=== PATIENT | male | born 1950 | race Caucasian/White ===

== ENCOUNTER 2016-07-19 17:07 | Inpatient (IN) ==
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
[2016-07-19 18:14] LABS: Basophils # 0.1 K/mcL (0.0-0.2); Basophils % 0.7 %; Eosinophils # 0.4 K/mcL (0.0-0.6); Eosinophils % 5.4 %; Hematocrit 41.7 % (37.5-50.1); Hemoglobin 14.3 g/dL (12.9-16.9); Immature Granulocytes % 0.3 % (0-4); Lymphocytes # 2.3 K/mcL (0.6-4.6); Mean Corpuscular HGB Conc 34.3 g/dL (31.6-35.5); Mean Corpuscular Hemoglobin 31.8 pg (28.0-33.3); Mean Corpuscular Volume 92.7 fL (83.0-100.0); Mean Platelet Volume 9.5 fL (9.4-12.4); Monocytes # 0.4 K/mcL (0.0-1.3); Monocytes % 6.4 %; Neutrophils # 3.6 K/mcL (1.6-8.9); Platelet Count 210 K/mcL (140-400); Red Cell Distribution Width 12.5 % (11.5-14.5); Segmented Neutrophils % 53.2 %
[2016-07-19 18:24] LABS: BUN/Creatinine Ratio 9 (6-26); Blood Urea Nitrogen 8 mg/dL (8-26); Calcium 9.3 mg/dL (8.6-10.8); Carbon Dioxide 27 mEq/L (19-29); Chloride 108 mEq/L (98-109); Glucose 93 mg/dL (70-99); Osmolality,Calculated 290 (280-300); Potassium 3.3 mEq/L (3.5-4.5); Sodium 141 mEq/L (136-145); eGFR For African Americans > 60 (> 60); eGFR For Non-African Americans > 60 (> 60)
--- NOTE | 2016-07-19 22:40 | Internal Med History&Physical ---
Date of Encounter: 07/19/16 Time of Encounter: 22:33 Assessment and Plan (1) TIA (transient ischemic attack) Current visit: Yes Status: Acute Patient described an episode of sudden onset left lower extremity weakness to the emergency department physician. He tells me about sun onset numbness and his left side of the face and left upper extremity. His neurologic exam is grossly nonfocal. We will admit the patient for further workup and treatment, monitor on telemetry, perform neuro checks every 4 hours, obtain MRI of the brain, carotid Doppler studies and echocardiogram. Check lipid panel, start aspirin, obtain PT and OT evaluation. Qualifiers: Transient cerebral ischemia type: carotid artery syndrome (hemispheric) Qualified Code(s): G45.1 - Carotid artery syndrome (hemispheric) (2) COPD (chronic obstructive pulmonary disease) Current visit: Yes Status: Acute Inhaled albuterol and Atrovent as needed for shortness of breath. No evidence of exacerbation. No need for steroids or antibiotics. Qualifiers: COPD type: chronic bronchitis Chronic bronchitis type: simple Qualified Code(s): J41.0 - Simple chronic bronchitis (3) Tobacco abuse Current visit: Yes Status: Acute I have provided smoking cessation counseling. He refused nicotine replacement therapy. (4) Essential hypertension Current visit: Yes Status: Acute Continue with metoprolol and amlodipine (5) DVT prophylaxis Current visit: Yes Status: Acute Subcutaneous Lovenox. Internal Medicine - H&P: HPI Chief complaint: Headache Admitted From: Emergency Dept Plans for Post Hospital Care: Home History of present illness: Mr. Underwood is a 65 year old male with past medical history of hypertension and COPD who presented to the hospital for headache. The patient is a disorganized historian and it is difficult to obtain a clear picture. He reports a diffuse headache and several days of intermittent left cyanosis numbness involving the left upper extremity the left side of the face and the mouth including the left side of his tongue. She also admits that the numbness moves from the left side than the right and does not have a clear pattern. He states that he has been limping but he denies that one week when being weaker than the other. He also reports chronic joint aches and pains, chronic cough related to smoking, and mild chest pain which she cannot describe in any detail. He also reports chronic headache, visual loss, he also reports a recent episode of syncope. He reports symptoms of PTSD. A 10 point review of systems was negative except as above Past medical history as per the history of present illness Family history was reviewed and found to be noncontributory to this presentation. Past Med Surg Social Fam HX - Past Medical History Medical history: cancer, COPD, hypertension Psychiatric history: PTSD - Social History Smoking Status: Current every day smoker Smokeless Tobacco Status: Yes Alcohol use: none Drug use: none Internal Medicine - H&P: Meds Amlodipine Besylate 2.5 mg PO BID 07/19/16 [History] Budesonide/Formoterol 160/4.5 [Symbicort 160/4.5] 1 puff IH BIDR 07/19/16 [ History] Buspirone HCl [Buspar] 7.5 mg PO BID 07/19/16 [History] Gabapentin [Neurontin] 300 mg PO TID 07/19/16 [History] HydrOXYzine Pamoate [Vistaril] 50 mg PO TID PRN 07/19/16 [History] LevETIRAcetam [Keppra] 1,000 mg PO BID 07/19/16 [History] Metoprolol [Lopressor] 25 mg PO BID 07/19/16 [History] Topiramate [Topamax] 25 mg PO BID 07/19/16 [History] Allergies butorphanol Allergy (Verified 12/01/15 18:36) Hives cephalexin Allergy (Verified 12/01/15 18:36) Hives chocolate flavor Allergy (Verified 12/01/15 18:36) Anaphylaxis ciprofloxacin [From Cipro] Allergy (Verified 12/01/15 18:36) Hives codeine Allergy (Verified 12/01/15 18:36) Hives Iodinated Contrast Media - Oral and [Iodinated Contrast Media - IV Dye] Allergy (Verified 12/01/15 18:36) See Comments patient states "makes me feel like I am on fire." lamotrigine Allergy (Verified 12/01/15 18:36) Redness of Skin morphine Allergy (Verified 12/01/15 18:36) Hallucinating Penicillins Allergy (Verified 12/01/15 18:36) Hives Prazosin Allergy (Verified 12/01/15 18:36) Hives sertraline Allergy (Verified 12/01/15 18:36) Hives acetaminophen [From Darvocet-N] Adverse Reaction (Verified 12/01/15 18:36) Vomiting doxycycline Adverse Reaction (Verified 07/19/16 19:23) See Comments [facility] gabapentin Adverse Reaction (Verified 12/01/15 18:36) Gastrointestinal Upset Paroxetine [From Paxil] Adverse Reaction (Verified 12/01/15 18:36) Hallucinating propoxyphene [From Darvocet-N] Adverse Reaction (Verified 12/01/15 18:36) Vomiting tramadol Adverse Reaction (Verified 12/01/15 18:36) Vomiting All Systems PM: A 10-system review of systems was performed and is negative for pertinent findings except as documented above in the HPI. - Constitutional Vitals: Temp Pulse Resp BP Pulse Ox 97.5 F L 58 16 121/83 95 07/19/16 17:09 07/19/16 18:50 07/19/16 20:46 07/19/16 20:46 07/19/16 18:50 General appearance: Present: A&O X 3 - Eye Eye exam: Present: PERRL, conjuntiva pink, sclera anicteric Pupils: Present: PERRL - Respiratory Respiratory exam: Present: CTAB. Absent: accessory muscle use, rales, rhonchi, wheezes - Cardiovascular Cardiovascular exam: Present: RRR, +S1, +S2. Absent: diastolic murmur, gallop, rubs, systolic murmur - GI/Abdominal GI/Abdominal exam: Present: normal bowel sounds, soft, no peritoneal signs. Absent: distended, tenderness - Extremities Exam Extremities exam: Present: warm, radial pulses palpable and symetrical. Absent : calf tenderness, cyanotic, pedal edema - Neurological Exam Neurological exam: Present: CN II-XII intact, normal gait (Gait is slow and deliberate but he does not sway to either side), oriented X3, no focal deficits. Absent: pronater drift, facial droop, speech deficit - Skin Skin exam: Present: dry, intact Internal Med - H&P Results - Labs CBC & Chem 7: 07/19/16 17:46 07/19/16 17:46
[2016-07-19] MEDS ORDERED: hydrOXYzine pamoate 25 MG CAPSULE PO PRN (22:49)
[2016-07-19] MEDS ORDERED: Acetaminophen 325 MG TABLET PO PRN (22:51)
[2016-07-19] MEDS ORDERED: *HR* HYDROcodone/Acet 5/325 mg TABLET PO PRN (22:51)
[2016-07-19] MEDS ORDERED: Naloxone 0.4 MG/ML INJ IVP PRN (22:51)
[2016-07-20 05:30] LABS: Basophils # 0.1 K/mcL (0.0-0.2); Basophils % 0.9 %; Eosinophils # 0.4 K/mcL (0.0-0.6); Eosinophils % 5.3 %; Hematocrit 39.8 % (37.5-50.1); Hemoglobin 13.4 g/dL (12.9-16.9); Immature Granulocytes % 0.3 % (0-4); Lymphocytes # 2.5 K/mcL (0.6-4.6); Lymphocytes % 37.6 %; Mean Corpuscular HGB Conc 33.7 g/dL (31.6-35.5); Mean Corpuscular Hemoglobin 31.2 pg (28.0-33.3); Mean Corpuscular Volume 92.6 fL (83.0-100.0); Monocytes # 0.5 K/mcL (0.0-1.3); Neutrophils # 3.2 K/mcL (1.6-8.9); Platelet Count 203 K/mcL (140-400); Red Cell Distribution Width 12.5 % (11.5-14.5); Segmented Neutrophils % 48.9 %
[2016-07-20 05:44] LABS: BUN/Creatinine Ratio 10 (6-26); Blood Urea Nitrogen 10 mg/dL (8-26); Calcium 9.1 mg/dL (8.6-10.8); Carbon Dioxide 29 mEq/L (19-29); Chloride 109 mEq/L (98-109); Chol/HDL Ratio 3.7 (0-4.9); Cholesterol 114 mg/dL (< 200); Glucose 94 mg/dL (70-99); HDL Cholesterol 31 mg/dL (40-59); LDL Cholesterol,Calculated 64 mg/dL (0-99); Magnesium 2.1 mg/dL (1.6-2.6); Osmolality,Calculated 293 (280-300); Potassium 3.6 mEq/L (3.5-4.5); Sodium 142 mEq/L (136-145); Triglycerides 97 mg/dL (< 150); eGFR For African Americans > 60 (> 60); eGFR For Non-African Americans > 60 (> 60)
[2016-07-20] MEDS: *HR* Enoxaparin 40 MG/0.4 ML SYRINGE SQ SCH (06:02)
[2016-07-20] MEDS: Budesonide/Formoterol 160/4.5 MDI IH SCH ×2 (07:41→23:50)
[2016-07-20] MEDS: Aspirin 81 MG TAB.CHEW PO SCH (08:06)
[2016-07-20] MEDS: levETIRAcetam 250 MG TABLET PO SCH ×2 (08:08→20:55)
[2016-07-20] MEDS: Gabapentin 300 MG CAPSULE PO SCH ×3 (08:09→20:52)
[2016-07-20] MEDS: amLODIPine 5 MG TABLET PO SCH ×2 (08:10→20:54)
[2016-07-20] MEDS: Topiramate 25 MG TABLET PO SCH ×2 (08:11→20:52)
--- NOTE | 2016-07-20 11:34 | Neurology - Consult Note ---
<RoelAly - Last Filed: 07/20/16 13:07> Date of Encounter: 07/20/16 Time of Encounter: 11:30 Assessment and Plan (1) Paresthesias Current Visit: Yes Status: Chronic Given his psych history along with high variability and chronicity of his symptoms, I suspect psychogenic etiology He had head CT and MRI which were both non-diagnostic of acute intracranial abnormalities Echocardiogram and Carotid ultrasounds have been ordered and results are pending Will work up metabolic derangements with B12, Folate; TSH was WNL History of Present Illness Chief complaint: numbness and headache HPI: Mr. Underwood is a 65 year old male who presents to the ED with numbness of the left side along with headaches. He states that these symptoms have been intermittent over the past 47 years but has never been formally worked up. He states the numbness usually starts at his fingers and progress up his arm and goes to his face, neck and tongue on one side. He denies any triggering factors, stating these episodes occur randomly and usually last around 2 days. He also reports the symptoms may occur on either side of his body. He describes the headache as diffuse and also complains of generalized weakness and blurry vision, claiming to have visual deficits similar to binasal hemianopsia. He does have history of PTSD on multiple psychiatric medications and had bladder cancer which was resected, causing him chronic urinary incontinence. He lives at home with his and states he does have a history of falls but is unable to tell me if he has lost consciousness. Denies history of stroke, blood clots, or seizures. Past Med Surg Social Fam HX - Past Medical History Medical history: cancer, COPD, hypertension Psychiatric history: PTSD - Social History Smoking Status: Current every day smoker Smokeless Tobacco Status: Yes Alcohol use: none Drug use: none Medications and Allergies Amlodipine Besylate 2.5 mg PO BID 07/19/16 [History] Budesonide/Formoterol 160/4.5 [Symbicort 160/4.5] 1 puff IH BIDR 07/19/16 [ History] Buspirone HCl [Buspar] 7.5 mg PO BID 07/19/16 [History] Gabapentin [Neurontin] 300 mg PO TID 07/19/16 [History] HydrOXYzine Pamoate [Vistaril] 50 mg PO TID PRN 07/19/16 [History] LevETIRAcetam [Keppra] 1,000 mg PO BID 07/19/16 [History] Metoprolol [Lopressor] 25 mg PO BID 07/19/16 [History] Topiramate [Topamax] 25 mg PO BID 07/19/16 [History] Allergies butorphanol Allergy (Verified 12/01/15 18:36) Hives cephalexin Allergy (Verified 12/01/15 18:36) Hives chocolate flavor Allergy (Verified 12/01/15 18:36) Anaphylaxis ciprofloxacin [From Cipro] Allergy (Verified 12/01/15 18:36) Hives codeine Allergy (Verified 12/01/15 18:36) Hives Iodinated Contrast Media - Oral and [Iodinated Contrast Media - IV Dye] Allergy (Verified 12/01/15 18:36) See Comments patient states "makes me feel like I am on fire." lamotrigine Allergy (Verified 12/01/15 18:36) Redness of Skin morphine Allergy (Verified 12/01/15 18:36) Hallucinating Penicillins Allergy (Verified 12/01/15 18:36) Hives Prazosin Allergy (Verified 12/01/15 18:36) Hives sertraline Allergy (Verified 12/01/15 18:36) Hives acetaminophen [From Darvocet-N] Adverse Reaction (Verified 12/01/15 18:36) Vomiting doxycycline Adverse Reaction (Verified 07/19/16 19:23) See Comments va list gabapentin Adverse Reaction (Verified 12/01/15 18:36) Gastrointestinal Upset Paroxetine [From Paxil] Adverse Reaction (Verified 12/01/15 18:36) Hallucinating propoxyphene [From Darvocet-N] Adverse Reaction (Verified 12/01/15 18:36) Vomiting tramadol Adverse Reaction (Verified 12/01/15 18:36) Vomiting All Systems: A 10-system review of systems was performed and is negative for pertinent findings except as documented above in the HPI. - Constitutional Constitutional ROS IM: frequent falls, headache(s), stops breathing during sleep , weakness, no fever(s) - Eyes Eyes: bilateral: blurred vision, loss of vision (in the medial aspects) - Nose, Mouth, Throat Nose, mouth and throat: disequilibrium, headache(s), no vertigo - Cardiovascular Cardiovascular ROS IM: no chest pain, no diaphoresis, no irregular heart rhythm - Respiratory Respiratory IM: no cough, no wheezing - Gastrointestinal Gastrointestinal: no abdominal pain, no constipation, no diarrhea, no nausea, no vomiting - Genitourinary Genitourinary ROS: urinary incontinence - Musculoskeletal Musculoskeletal ROS IM: muscle weakness, numbness, tingling - Neurological Neurological ROS: abnormal gait, headache(s), lack of coordination, loss of vision, numbness, sensory deficit, tingling, weakness, no abnormal movements, no abnormal speech, no confusion, no focal weakness, no syncope, no tremor(s) Physical Examination - Vital Signs Vital Signs: Initial Vital Signs Temp Pulse Resp BP Pulse Ox 97.5 F L 59 16 138/92 98 07/19/16 17:09 07/19/16 17:09 07/19/16 17:09 07/19/16 17:09 07/19/16 17:09 - Constitutional General appearance: comfortable - Neurologic Sensorimotor examination: intact Detailed motor examination: full strength in all major muscle groups Motor examination - right side: 5/5: deltoids, biceps, triceps, cushion maker, hip flexors, quadriceps Motor examination - left side: 5/5: deltoids, biceps, triceps, hip flexors, cushion maker , quadriceps Detailed sensory examination: intact (slightly diminished at left side of face and arm, and right leg) Reflex and gait examination: intact Reflexes: Biceps: 2+, Patella: 2+, Achilles: 2+ Mental Status Examination: awake, alert, oriented to person, oriented to place, oriented to time, follows commands appropriately, answers questions appropriately, no agnosia, no aphasia, no aproxia Cranial nerve examination: PERRL, EOMI, visual singleton intact, corneal reflexes brisk symmetrically, sensory to face intact, mastication intact, no facial asymmetry is present, no dysarthria, hearing is intact symmetrically, soft palate elevates bilaterally upon phonation, gag reflex intact, flexes SCM and trapezius muscles symmetrically with full power, tongue protrudes midline, no atrophy or facial fasiculations present Cerebellar examination: no dysmetria, performs finger to nose and heel to kasper symmetrically without ataxia, no difficulty with rapid alternating movements Results - Laboratory Findings CBC and BMP: 07/20/16 04:59 07/20/16 04:59 Abnormal lab findings: Abnormal lab results MPV 9.0 fL (9.4-12.4) L 07/20/16 04:59 HDL Cholesterol 31 mg/dL (40-59) L 07/20/16 04:59 Consult Discharge Plan - Plan [facility]errals: [facility]Primary Care Provider[facility] - <Reji Lee - Last Filed: 07/21/16 08:09> Date of Encounter: 07/21/16 Time of Encounter: 07:59 Assessment and Plan (1) Paresthesias Current Visit: Yes Status: Chronic As above. Patient presents with migratory paresthesias and a host of other somatic complaints. However his neurologic examination and neuroimaging studies have all been normal. I am not able to determine a neurologic etiology to explain this gentleman's presentation. I agree with Dr. Sevilla's assessment as stated above. I will reevaluate him at your request. History of Present Illness HPI: Mr. Underwood is a 65 year old male who is being seen for neurologic consultation secondary to migratory paresthesias and headaches. The case was discussed with Dr. Sevilla. I agree with his history as stated above. All Systems: A 10-system review of systems was performed and is negative for pertinent findings except as documented above in the HPI. Review of Systems: Patient answers affirmatively to every question asked in the systems review. Physical Examination - Vital Signs Vital Signs: Initial Vital Signs Temp Pulse Resp BP Pulse Ox 97.5 F L 59 16 138/92 98 07/19/16 17:09 07/19/16 17:09 07/19/16 17:09 07/19/16 17:09 07/19/16 17:09 - Neurologic Detailed motor examination: full strength in all major muscle groups Motor examination - right side: 5/5: deltoids, biceps, triceps, wrist flexion, wrist extension, cushion maker, hip flexors, tibialis Anterior, quadriceps, toe extension (EHL), plantarflexion Motor examination - left side: 5/5: deltoids, biceps, triceps, wrist flexion, wrist extension, hip flexors, cushion maker, quadriceps, tibialis Anterior, toe extension (EHL), plantarflexion Mental Status Examination: awake, alert, oriented to person, oriented to place, oriented to time, follows commands appropriately, answers questions appropriately, no agnosia, no aphasia, no aproxia Cranial nerve examination: PERRL, EOMI, visual singleton intact, corneal reflexes brisk symmetrically, sensory to face intact, mastication intact, no facial asymmetry is present, no dysarthria, hearing is intact symmetrically, soft palate elevates bilaterally upon phonation, gag reflex intact, flexes SCM and trapezius muscles symmetrically with full power, tongue protrudes midline, no atrophy or facial fasiculations present Cerebellar examination: no dysmetria, performs finger to nose and heel to kasper symmetrically without ataxia, no gait ataxia, no truncal ataxia, no difficulty with rapid alternating movements Results - Laboratory Findings CBC and BMP: 07/21/16 04:24 07/21/16 04:24 Abnormal lab findings: Abnormal lab results Potassium 3.3 mEq/L (3.5-4.5) L 07/21/16 04:24 HDL Cholesterol 31 mg/dL (40-59) L 07/20/16 04:59 Vitamin B12 < 109 pg/mL (213-816) L 07/20/16 04:59 Folate 6.2 ng/mL (7.0-31.4) L 07/20/16 04:59
--- NOTE | 2016-07-20 12:26 | ECHO - Doppler Report ---
Echo with Saline Contrast Name: Robby Underwood Date of Study: 07/20/2016 Date: 1950 Ht: 72.0 in Medical Record#: [id number] Age: 65 Wt: 171.0 lb Gender: Male BSA: 1.99 Order #: [id number] Location: [facility] Room #: 3B21 Reading Physician: Reji Dc MD, [facility] Mobile Application Development Lead: Eboni Alanis Ordering Physician: Marcial Caceres MD Primary Physician: [facility] Indications: Transient Ischemic Attack Impressions: Normal LV systolic function, LVEF 65%. Normal left ventricular diastolic function. Normal right ventricular size and function. No significant valvular dysfunction. No evidence of pulmonary hypertension. There is a small patent foramen ovale (PFO) by agitated saline contrast. Left Ventricular Wall Motion: Rest Echo Findings All wall segments showed normal motion. Findings: Study Quality * Technically adequate exam. ECG Findings * Sinus bradycardia. Left Ventricle * Normal LV systolic function, LVEF 65%. * Normal LV chamber size and wall thickness. * Normal left ventricular diastolic function. Right Ventricle * Normal right ventricular size and function. Left Atrium * Normal left atrial size. Right Atrium * Normal right atrial size. Interatrial Septum * There is a small patent foramen ovale (PFO) by agitated saline contrast. Aorta * Normally sized aortic root. Pericardium * There is no pericardial effusion present. IVC * Normal IVC dimensions and inspiratory collapse. Aortic Valve * Trileaflet aortic valve. * No aortic stenosis. * No aortic regurgitation. Mitral Valve * Normal mitral valve structure. * No mitral stenosis. * Trace mitral regurgitation. Tricuspid Valve * Normal tricuspid valve structure. * No tricuspid stenosis. * Trace tricuspid regurgitation. * No evidence of pulmonary hypertension. Pulmonic Valve * Pulmonic valve not well visualized. * No pulmonic stenosis. * No pulmonic regurgitation. History Hypertension History of Smoking Years 57 Packs 1 Family History of CAD Contrast: Agitated saline 20 ml. Measurements: BP: 120/ 75 2D Normal Values RVIDd: 3.40 cm IVSd: 1.00 cm 0.6 - 1.0 cm LVIDd: 4.50 cm 3.7 - 5.6 cm LVPWd: 1.00 cm 0.6 - 1.1 cm LVIDs: 3.00 cm 1.5 - 3.6 cm AO: 2.60 cm < 4.0 cm %FS: 33.30 cm >25 % LA volume: 34 Mitral Valve Peak E:.78 m/sec Peak A:.61 m/sec E/A Ratio:1.3 Tricuspid Valve TV Regurg Peak Grad: 30.00mmHg TV Regurg Peak Ghulam: 2.73m/sec Updated by Reji Dc MD, [facility] on 07/20/2016 12:21:58 PM electronically signed on 07/20/2016 12:22:43 PM with status of Final Wall Motion Razo: 1=Normal, 2=Hypokinesis, 3=Akinesis, 4=Dyskinesis, 5=Aneurysmal, 6=Hyperkinetic, X=Not Visualized (Blank)=Missing
[2016-07-20] MEDS: Nicotine 2 MG GUM BC PRN ×2 (12:31→17:50)
[2016-07-20 12:48] LABS: Thyroid Stimulating Hormone 3.131 mcIU/mL (0.350-4.840)
[2016-07-20 14:21] LABS: Folate 6.2 ng/mL (7.0-31.4)
[2016-07-20 14:25] LABS: Vitamin B12 < 109 pg/mL (213-816)
--- NOTE | 2016-07-20 16:57 | Internal Med Progress Note ---
Date of Encounter: 07/20/16 Time of Encounter: 16:55 - Assessment and plan (1) TIA (transient ischemic attack) Current Visit: Yes Status: Acute Assessment and plan: Initial presenting symptoms resolved at this time MRI head: No acute intracranial abnormality 2D echo: Normal LV systolic function, LVEF: 65%, normal LV diastolic function carotid doppler studies pending awaiting Neurology consultation with Dr. Lee Continue ASA PT/OT Qualifiers: Transient cerebral ischemia type: carotid artery syndrome (hemispheric) Qualified Code(s): G45.1 - Carotid artery syndrome (hemispheric) (2) COPD (chronic obstructive pulmonary disease) Current Visit: Yes Status: Acute Assessment and plan: Not in acute exacerbation continue bronchodilators as needed Qualifiers: COPD type: chronic bronchitis Chronic bronchitis type: simple Qualified Code(s): J41.0 - Simple chronic bronchitis (3) Tobacco abuse Current Visit: Yes Status: Acute Assessment and plan: nicotine replacement therapy provided smoking cessation counseling provided. Pt not ready to quit at this time. (4) Essential hypertension Current Visit: Yes Status: Acute Assessment and plan: BP within acceptable range continue home medications (5) DVT prophylaxis Current Visit: Yes Status: Acute Assessment and plan: Enoxaparin SQ - Subjective Interval history: Pt seen and examined at bedside. Resting in bed and reports of feeling better compared to previous day, however does state these episodes of numbness and vision loss have been there for years and yesterday it became severe due to which he came to the ER. At this time he reports of complete resolution of his initial presenting symptoms. denies any discomfort at this time. - Constitutional Vitals: Temp Pulse Resp BP Pulse Ox 97.5 F L 64 14 133/79 94 L 07/20/16 15:26 07/20/16 15:26 07/20/16 15:26 07/20/16 15:26 07/20/16 15:26 General appearance: Present: A&O X 3, no acute distress - Head Head exam: Present: atraumatic, normocephalic - Eye Eye exam: Present: EOMI, conjuntiva pink, sclera anicteric - Respiratory Respiratory exam: Present: CTAB. Absent: accessory muscle use, rales, rhonchi, wheezes - Cardiovascular Cardiovascular exam: Present: RRR, +S1, +S2. Absent: diastolic murmur, gallop, rubs, systolic murmur - GI/Abdominal GI/Abdominal exam: Present: normal bowel sounds, soft, no peritoneal signs. Absent: distended, tenderness - Extremities Exam Extremities exam: Present: warm, radial pulses palpable and symetrical. Absent : calf tenderness, cyanotic, pedal edema - Neurological Exam Neurological exam: Present: alert, oriented X3, no focal deficits, strengths equal and symetr throughout. Absent: pronater drift, facial droop, speech deficit - Psychiatric Psychiatric exam: Present: normal affect, normal mood Internal Medicine: Result - Labs CBC & Chem 7: 07/20/16 04:59 07/20/16 04:59 Labs: Short CBC 07/20/16 Range/Units 04:59 WBC 6.6 (4.3-11.1) K/mcL Hgb 13.4 (12.9-16.9) g/dL Hct 39.8 (37.5-50.1) % Plt Count 203 (140-400) K/mcL Neutrophils # 3.2 (1.6-8.9) K/mcL BMP 07/20/16 04:59 Sodium 142 Potassium 3.6 Chloride 109 Carbon Dioxide 29 BUN 10 Creatinine 1.05 Glucose 94 Calcium 9.1 Cardiac Enzymes 07/20/16 07/20/16 Range/Units 01:07 04:59 Troponin I 0.00 0.00 (0-0.03) ng/mL - Impressions Impressions Brain MRI 07/19/16 22:58 IMPRESSION: No acute intracranial abnormality. No acute infarct. Minimal microvascular ischemic disease is not significantly changed. D/ / 07/20/2016 10:18:09 Andreea Braun MD / skyler Interpreting Provider: Andreea Braun MD Consult Discharge Plan - Plan [facility]errals: [facility] [Primary Care Provider] -
--- NOTE | 2016-07-20 20:47 | Electrocardiograph Report ---
[place] [id number] Test Date: 2016-07-19 Pat Name: Robby Underwood Department: 103 Room: 3B21 Gender: M Health Safety Specialist: AM : 1950 Requested By: Reji Alcala Order Number: [id number] Reading MD: Reji Dc MD Measurements Intervals Bois D Arc Rate: 54 P: 76 NC: 194 QRS: -15 QRSD: 98 T: 46 QT: 386 QTc: 372 Interpretive Statements SINUS BRADYCARDIA Electronically Signed On 07-20-2016 20:45:50 EDT by Reji Dc MD
[2016-07-21 05:25] LABS: Basophils # 0.1 K/mcL (0.0-0.2); Basophils % 0.8 %; Eosinophils # 0.4 K/mcL (0.0-0.6); Eosinophils % 5.2 %; Hemoglobin 14.2 g/dL (12.9-16.9); Immature Granulocytes % 0.3 % (0-4); Lymphocytes # 2.5 K/mcL (0.6-4.6); Lymphocytes % 32.5 %; Mean Corpuscular HGB Conc 34.6 g/dL (31.6-35.5); Mean Corpuscular Hemoglobin 32.4 pg (28.0-33.3); Mean Corpuscular Volume 93.6 fL (83.0-100.0); Mean Platelet Volume 9.4 fL (9.4-12.4); Monocytes # 0.5 K/mcL (0.0-1.3); Monocytes % 6.6 %; Neutrophils # 4.3 K/mcL (1.6-8.9); Platelet Count 203 K/mcL (140-400); Red Blood Count 4.38 M/mcL (4.19-5.50); Red Cell Distribution Width 12.6 % (11.5-14.5); Segmented Neutrophils % 54.6 %
[2016-07-21 05:45] LABS: BUN/Creatinine Ratio 8 (6-26); Blood Urea Nitrogen 8 mg/dL (8-26); Calcium 9.3 mg/dL (8.6-10.8); Carbon Dioxide 26 mEq/L (19-29); Chloride 107 mEq/L (98-109); Glucose 90 mg/dL (70-99); Magnesium 2.1 mg/dL (1.6-2.6); Osmolality,Calculated 290 (280-300); Phosphorous 3.1 mg/dL (2.3-4.7); Potassium 3.3 mEq/L (3.5-4.5); Sodium 141 mEq/L (136-145); eGFR For African Americans > 60 (> 60); eGFR For Non-African Americans > 60 (> 60)
[2016-07-21] MEDS: *HR* Enoxaparin 40 MG/0.4 ML SYRINGE SQ SCH ×2 (06:11→06:12)
[2016-07-21 07:33] VITALS: BP 127/69
[2016-07-21] MEDS: levETIRAcetam 250 MG TABLET PO SCH (08:05)
[2016-07-21] MEDS: Aspirin 81 MG TAB.CHEW PO SCH (08:05)
[2016-07-21] MEDS: Topiramate 25 MG TABLET PO SCH (08:06)
[2016-07-21] MEDS: Gabapentin 300 MG CAPSULE PO SCH (08:06)
[2016-07-21] MEDS: amLODIPine 5 MG TABLET PO SCH (08:06)
[2016-07-21] MEDS ORDERED: Cyanocobalamin (B-12) 1,000 MCG TABLET PO SCH (09:00)
--- NOTE | 2016-07-21 10:24 | Discharge Summary ---
Date of Encounter: 07/21/16 Time of Encounter: 10:21 - Discharge Diagnosis (1) TIA (transient ischemic attack) Priority: Primary Status: Acute Qualifiers: Transient cerebral ischemia type: carotid artery syndrome (hemispheric) Qualified Code(s): G45.1 - Carotid artery syndrome (hemispheric) (2) COPD (chronic obstructive pulmonary disease) Priority: Secondary Status: Chronic Qualifiers: COPD type: chronic bronchitis Chronic bronchitis type: simple Qualified Code(s): J41.0 - Simple chronic bronchitis (3) Tobacco abuse Priority: Secondary Status: Chronic (4) Essential hypertension Priority: Secondary Status: Chronic (5) DVT prophylaxis Priority: Secondary Status: Acute - Discharge Medications Prescriptions: Cyanocobalamin/Folic Acid [Vitamin N50-Oadpv Acid Tablet] 1 each PO DAILY #30 tablet Home Medications: Amlodipine Besylate 2.5 mg PO BID 07/19/16 [History] Budesonide/Formoterol 160/4.5 [Symbicort 160/4.5] 1 puff IH BIDR 07/19/16 [ History] Buspirone HCl [Buspar] 7.5 mg PO BID 07/19/16 [History] Gabapentin [Neurontin] 300 mg PO TID 07/19/16 [History] HydrOXYzine Pamoate [Vistaril] 50 mg PO TID PRN 07/19/16 [History] LevETIRAcetam [Keppra] 1,000 mg PO BID 07/19/16 [History] Metoprolol [Lopressor] 25 mg PO BID 07/19/16 [History] Topiramate [Topamax] 25 mg PO BID 07/19/16 [History] Cyanocobalamin/Folic Acid [Vitamin Y70-Cpvdp Acid Tablet] 1 each PO DAILY #30 tablet 07/21/16 [Rx] Allergies/Adverse Reactions: Allergies butorphanol Allergy (Verified 12/01/15 18:36) Hives cephalexin Allergy (Verified 12/01/15 18:36) Hives chocolate flavor Allergy (Verified 12/01/15 18:36) Anaphylaxis ciprofloxacin [From Cipro] Allergy (Verified 12/01/15 18:36) Hives codeine Allergy (Verified 12/01/15 18:36) Hives Iodinated Contrast Media - Oral and [Iodinated Contrast Media - IV Dye] Allergy (Verified 12/01/15 18:36) See Comments patient states "makes me feel like I am on fire." lamotrigine Allergy (Verified 12/01/15 18:36) Redness of Skin morphine Allergy (Verified 12/01/15 18:36) Hallucinating Penicillins Allergy (Verified 12/01/15 18:36) Hives Prazosin Allergy (Verified 12/01/15 18:36) Hives sertraline Allergy (Verified 12/01/15 18:36) Hives acetaminophen [From Darvocet-N] Adverse Reaction (Verified 12/01/15 18:36) Vomiting doxycycline Adverse Reaction (Verified 07/19/16 19:23) See Comments va list gabapentin Adverse Reaction (Verified 12/01/15 18:36) Gastrointestinal Upset Paroxetine [From Paxil] Adverse Reaction (Verified 12/01/15 18:36) Hallucinating propoxyphene [From Darvocet-N] Adverse Reaction (Verified 12/01/15 18:36) Vomiting tramadol Adverse Reaction (Verified 12/01/15 18:36) Vomiting Procedures/tests Complete & Pending: Procedures Performed prior 72 hours Category Date Time Status MR head/brain wo con [MR] Routine MRI 07/19/16 22:58 Completed EV carotid duplex imaging BI Routine Y 07/20/16 22:59 Completed EV echocardiogram Routine Y 07/20/16 23:00 Completed Date of admission: 07/19/16 22:51 [facility] care physician: [facility] Consults: 07/20/16 09:57 Consult to Neurology [CONS] Routine Consulting Provider: Neurology [facility] Reason for Consult: TIA Call Completed: Yes Discharging clinician: Pepper Kenny Anticipated date of discharge: 07/21/16 - Patient Status Disposition: Home, Self-Care Condition: Good Functional capacity at discharge: independent ambulation Overall status at discharge: patient is back to baseline - Discharge Instructions Follow Up With: [facility] [Primary Care Provider] - Additional Instructions: Please follow up with your primary care physician within one week after your discharge from the hospital. Please follow up with Neurology (Dr. Lee) within one week after your discharge from the hospital. You were noted to have low levels of Vitamin B12 and Folate, which can be contributing to your presenting symptoms. Vit B12/Folate supplementation has been added to your home medications. Please take this medication as prescribed. Please resume all your home medications as prescribed by your primary care physician. - Diet and Activity Activity: resume usual activities as tolerated Diet: advance to your usual diet, low salt diet Hospital course: Mr. Underwood is a 65 year old male with PMH of hypertension, COPD, tobacco abuse, noncompliance who was admitted for a concern for TIA. He underwent full stroke work up which was negative for any intracranial pathology. He was also followed by neurology and underwent further metabolic work up to rule out any underlying causes contributing to his chronic parasthesia. He was noted to have low Vitamin B12 and Folate levels. He was started on Folate/B12 supplementation. At this time, patient is hemodynamically stable and has resolution of his presenting symptoms. He will be discharged to home with follow up with PCP and neurology. Patient demonstrates understanding of his diagnosis and agrees with the discharge plan. - Time Spent with Patient Total time spent providing and/or coordinating discharge services: Less than 30 minutes - Constitutional Vitals: Temp Pulse Resp BP Pulse Ox 98.5 F 72 16 127/69 93 L 07/21/16 07:31 07/21/16 07:31 07/21/16 07:31 07/21/16 07:31 07/21/16 07:31 General appearance: Present: A&O X 3, no acute distress - Head Head exam: Present: atraumatic, normocephalic - Eye Eye exam: Present: PERRL, conjuntiva pink, sclera anicteric - Respiratory Respiratory exam: Present: CTAB. Absent: accessory muscle use, rales, rhonchi, wheezes - Cardiovascular Cardiovascular exam: Present: RRR, +S1, +S2. Absent: diastolic murmur, gallop, rubs, systolic murmur - GI/Abdominal GI/Abdominal exam: Present: normal bowel sounds, soft, no peritoneal signs. Absent: distended, tenderness - Extremities Exam Extremities exam: Present: warm, radial pulses palpable and symetrical. Absent : calf tenderness, cyanotic, pedal edema - Neurological Exam Neurological exam: Present: alert, oriented X3, no focal deficits. Absent: pronater drift, facial droop, speech deficit - Psychiatric Psychiatric exam: Present: normal affect, normal mood
[2016-07-21] MEDS: Budesonide/Formoterol 160/4.5 MDI IH SCH (10:50)
--- NOTE | 2016-07-21 12:51 | Carotid Imaging Report ---
Carotid Duplex Patient Name:Robby Underwood Order Number:[id number] Procedure Date:07/20/2016 Date:1950ge:65 yrs Gender:Male Lt BP:120 / 75 mmHg Rt.BP:124 / 70 mmHgHeart Rate: Location:[facility] Room #: 21 Pharmacometrician:Eboni Alanis Referring MD:Marcial Caceres MD special forces specialist:[facility] Reading MD:Shola Ellis MD , [facility] Risk Factors Yes/No Hypertension Yes Smoking Current Yes Impressions: Findings: Bilateral carotid system are essentially normal. Recommendations: After imaging the patient returned to their room. Findings Carotid Duplex: Right: The right proximal common carotid artery has a PSV of 113 cm/s and a EDV of 27 cm/s. The right mid common carotid artery has a PSV of 102 cm/s and a EDV of 25 cm/s. The right distal common carotid artery has a PSV of 82 cm/s and a EDV of 25 cm/s. The right bifurcation has a PSV of 58 cm/s and a EDV of 15 cm/s. The right proximal internal carotid artery has a PSV of 83 cm/s and a EDV of 28 cm/s. The right mid internal carotid artery has a PSV of 62 cm/s and a EDV of 23 cm/s. The right distal internal carotid artery has a PSV of 66 cm/s and a EDV of 25 cm/s. The right eca has a PSV of 96 cm/s and a EDV of 16 cm/s. The right vertebral artery has a PSV of 50 cm/s and a EDV of 17 cm/s. Left: The left proximal common carotid artery has a PSV of 96 cm/s and a EDV of 33 cm/s. The left mid common carotid artery has a PSV of 81 cm/s and a EDV of 22 cm/s. The left distal common carotid artery has a PSV of 82 cm/s and a EDV of 22 cm/s. The left bifurcation has a PSV of 70 cm/s and a EDV of 23 cm/s. The left proximal internal carotid artery has a PSV of 82 cm/s and a EDV of 32 cm/s. The left mid internal carotid artery has a PSV of 97 cm/s and a EDV of 33 cm/s. The left distal internal carotid artery has a PSV of 63 cm/s and a EDV of 25 cm/s. The left eca has a PSV of 93 cm/s and a EDV of 22 cm/s. The left vertebral artery has a PSV of 61 cm/s and a EDV of 21 cm/s. Mid ICA is torturous. Carotid Results Right PSV EDV Assessment Proximal CCA 113 27 Mid CCA 102 25 Distal CCA 82 25 Bifurcation 58 15 Proximal ICA 83 28 Mid ICA 62 23 Distal ICA 66 25 ECA 96 16 Vertebral Artery 50 17 Left PSV EDV Assessment Proximal CCA 96 33 Mid CCA 81 22 Distal CCA 82 22 Bifurcation 70 23 Proximal ICA 82 32 Mid ICA 97 33 Distal ICA 63 25 ECA 93 22 Vertebral Artery 61 21 Ratio's Right ICA/CCA Ratio: 0.80 ICA/CCA Values: 83/102 Left ICA/CCA Ratio: 1.10 ICA/CCA Values: 97/81 Updated by Shola Ellis MD, FACS on 07/21/2016 12:44:27 PM Shola Ellis MD electronically signed on 07/21/2016 12:44:41 PM with status of Final
== END 2016-07-21 11:00 | disposition home or self-care (01) | DRG 69 ==
LOC: 3BNU 17:07 → EMEROO 17:07 → 3BNU 20:54 → SUATTDRO 22:51
PROVIDERS: ADMIT Internal Medicine; ATTEND Internal Medicine

== ENCOUNTER 2019-03-25 01:56 | Observation (INO) ==
[2019-03-25] MEDS ORDERED: Ipratropium/Albuterol Neb 3 ML IH ONE (02:07)
[2019-03-25 02:22] LABS: Basophils % 0.2 %; Eosinophils % 0.1 %; Hematocrit 39.6 % (37.5-50.1); Hemoglobin 13.7 g/dL (12.9-16.9); Immature Granulocytes % 0.5 % (0-4); Lymphocytes # 1.1 K/mcL (0.6-4.6); Lymphocytes % 6.5 %; Mean Corpuscular HGB Conc 34.6 g/dL (31.6-35.5); Mean Corpuscular Hemoglobin 30.1 pg (28.0-33.3); Mean Platelet Volume 9.2 fL (9.4-12.4); Monocytes % 6.1 %; Neutrophils # 14.7 K/mcL (1.6-8.9); Platelet Count 247 K/mcL (140-400); Red Blood Count 4.55 M/mcL (4.19-5.50); Red Cell Distribution Width 13.5 % (11.5-14.5); Segmented Neutrophils % 86.6 %; White Blood Count 16.9 K/mcL (4.3-11.1)
[2019-03-25 02:41] LABS: Alanine Aminotransferase 20 Units/L (7-52); Albumin 3.3 g/dL (3.5-5.7); Alkaline Phosphatase 96 Units/L (34-104); Aspartate Amino Transferase 13 Units/L (13-39); BUN/Creatinine Ratio 12 (6-26); Bilirubin,Direct 0.4 mg/dL (0.0-0.2); Bilirubin,Total 1.4 mg/dL (0.3-1.0); Blood Urea Nitrogen 11 mg/dL (8-23); Calcium 8.8 mg/dL (8.6-10.3); Carbon Dioxide 25 mEq/L (23-29); Chloride 100 mEq/L (98-107); Globulin 3.2 g/dL (2.4-3.5); Glucose 139 mg/dL (70-105); Osmolality,Calculated 280 (280-300); Potassium 3.7 mEq/L (3.5-5.1); Sodium 134 mEq/L (136-145); Total Protein 6.5 g/dL (6.4-8.9); Troponin I < 0.03 ng/mL (< 0.04); eGFR For African Americans > 60 (> 60); eGFR For Non-African Americans > 60 (> 60)
[2019-03-25] MEDS ORDERED: Isovue-370 500 ML BOTTLE IVP ONE (03:06)
[2019-03-25] MEDS ORDERED: methylPREDNISolone 125 MG/2 ML VIAL IVP ONE (03:16)
[2019-03-25] MEDS ORDERED: Azithromycin 500 MG in D5% in Water 250 ML IVPB ONE (05:26)
[2019-03-25] MEDS ORDERED: Meropenem 1,000 MG in Water for inj. (sterile) 20 ML IVP STA (05:43)
[2019-03-25] MEDS ORDERED: Naloxone 0.4 MG/ML INJ IVP PRN (08:01)
[2019-03-25] MEDS ORDERED: Ipratropium/Albuterol Neb 3 ML IH PRN (08:05)
[2019-03-25] MEDS: Aspirin Enteric Coated 81 MG Tablet PO SCH (10:43)
[2019-03-25] MEDS: Famotidine 20 MG TABLET PO SCH (10:43)
[2019-03-25] MEDS: amLODIPine 5 MG TABLET PO SCH ×2 (10:43→23:01)
[2019-03-25] MEDS: Budesonide/Formoterol 160/4.5 1 PUFF INH IH SCH ×2 (10:57→21:40)
[2019-03-25] MEDS: Albuterol 2.5 MG/3 ML NEBULIZER IH SCH ×3 (10:57→21:40)
[2019-03-25 16:53] LABS: Adenovirus Not Detected (Not Detect); Bordetella Pertussis Not Detected (Not Detect); Chlamydophila pneumoniae Not Detected (Not Detect); Coronavirus 229E Not Detected (Not Detect); Coronavirus HKU1 Not Detected (Not Detect); Coronavirus NL63 Not Detected (Not Detect); Coronavirus OC43 Not Detected (Not Detect); Human Metapneumovirus Not Detected (Not Detect); Human Rhinovirus/Enterovirus DETECTED (Not Detect); Influenza A Subtype 2009 H1 Not Detected (Not Detect); Influenza A Untypeable Not Detected (Not Detect); Influenza B Not Detected (Not Detect); Mycoplasma pneumoniae Not Detected (Not Detect); Parainfluenza Virus 1 Not Detected (Not Detect); Parainfluenza Virus 2 Not Detected (Not Detect); Parainfluenza Virus 3 Not Detected (Not Detect); Parainfluenza Virus 4 Not Detected (Not Detect); Respiratory Syncytial Virus Not Detected (Not Detect)
[2019-03-25] MEDS: cefTRIAXone 2,000 MG in 0.9 % Sodium Chloride Mini Bag 100 ML IVPB SCH (20:04)
[2019-03-25] MEDS: *HR* Heparin 5,000 UNIT/ML VIAL SQ SCH (23:01)
[2019-03-25] MEDS: Nicotine 21 MG PATCH.TD24 TD SCH (23:06)
[2019-03-26] MEDS: Azithromycin 500 MG in 0.9 % Sodium Chloride 250 ML IVPB SCH (05:35)
[2019-03-26] MEDS: *HR* Heparin 5,000 UNIT/ML VIAL SQ SCH ×3 (05:35→21:34)
[2019-03-26 06:54] LABS: Basophils % 0.1 %; Hematocrit 35.9 % (37.5-50.1); Hemoglobin 12.2 g/dL (12.9-16.9); Immature Granulocytes % 0.9 % (0-4); Lymphocytes # 0.8 K/mcL (0.6-4.6); Lymphocytes % 4.5 %; Mean Corpuscular Hemoglobin 29.8 pg (28.0-33.3); Mean Corpuscular Volume 87.6 fL (83.0-100.0); Mean Platelet Volume 9.4 fL (9.4-12.4); Monocytes # 0.4 K/mcL (0.0-1.3); Monocytes % 2.4 %; Neutrophils # 15.5 K/mcL (1.6-8.9); Platelet Count 282 K/mcL (140-400); Red Cell Distribution Width 13.2 % (11.5-14.5); Segmented Neutrophils % 92.1 %; White Blood Count 16.8 K/mcL (4.3-11.1)
[2019-03-26] MEDS: Albuterol 2.5 MG/3 ML NEBULIZER IH SCH ×3 (07:17→21:56)
[2019-03-26] MEDS: Budesonide/Formoterol 160/4.5 1 PUFF INH IH SCH ×2 (07:17→21:56)
[2019-03-26 08:39] LABS: BUN/Creatinine Ratio 21 (6-26); Blood Urea Nitrogen 19 mg/dL (8-23); Calcium 9.2 mg/dL (8.6-10.3); Carbon Dioxide 22 mEq/L (23-29); Chloride 102 mEq/L (98-107); Glucose 179 mg/dL (70-105); Osmolality,Calculated 287 (280-300); Potassium 4.1 mEq/L (3.5-5.1); Sodium 135 mEq/L (136-145); eGFR For African Americans > 60 (> 60); eGFR For Non-African Americans > 60 (> 60)
[2019-03-26] MEDS ORDERED: Ertapenem 1,000 MG in 0.9 % Sodium Chloride Mini Bag 100 ML IVPB SCH (09:00)
[2019-03-26] MEDS: Famotidine 20 MG TABLET PO SCH (09:45)
[2019-03-26] MEDS: amLODIPine 5 MG TABLET PO SCH (09:45)
[2019-03-26] MEDS: Aspirin Enteric Coated 81 MG Tablet PO SCH (09:45)
[2019-03-26] MEDS: levETIRAcetam 250 MG TABLET PO SCH ×2 (12:40→21:34)
[2019-03-26] MEDS: cefTRIAXone 2,000 MG in 0.9 % Sodium Chloride Mini Bag 100 ML IVPB SCH (14:41)
[2019-03-26] MEDS: Nicotine 21 MG PATCH.TD24 TD SCH (17:16)
[2019-03-26] MEDS ORDERED: tiZANidine 4 MG TABLET PO SCH (21:00)
[2019-03-27 05:05] LABS: Basophils % 0.2 %; Eosinophils # 0.1 K/mcL (0.0-0.6); Eosinophils % 0.5 %; Hematocrit 37.9 % (37.5-50.1); Hemoglobin 12.2 g/dL (12.9-16.9); Immature Granulocytes % 0.6 % (0-4); Lymphocytes # 1.9 K/mcL (0.6-4.6); Lymphocytes % 19.7 %; Mean Corpuscular HGB Conc 32.2 g/dL (31.6-35.5); Mean Corpuscular Hemoglobin 29.5 pg (28.0-33.3); Mean Corpuscular Volume 91.8 fL (83.0-100.0); Mean Platelet Volume 8.9 fL (9.4-12.4); Monocytes # 0.6 K/mcL (0.0-1.3); Monocytes % 5.9 %; Neutrophils # 6.9 K/mcL (1.6-8.9); Platelet Count 271 K/mcL (140-400); Red Blood Count 4.13 M/mcL (4.19-5.50); Red Cell Distribution Width 13.2 % (11.5-14.5); Segmented Neutrophils % 73.1 %; White Blood Count 9.5 K/mcL (4.3-11.1)
[2019-03-27 05:24] LABS: BUN/Creatinine Ratio 20 (6-26); Blood Urea Nitrogen 20 mg/dL (8-23); Calcium 8.9 mg/dL (8.6-10.3); Carbon Dioxide 30 mEq/L (23-29); Chloride 103 mEq/L (98-107); Glucose 99 mg/dL (70-105); Osmolality,Calculated 293 (280-300); Potassium 4.1 mEq/L (3.5-5.1); Sodium 140 mEq/L (136-145); eGFR For African Americans > 60 (> 60); eGFR For Non-African Americans > 60 (> 60)
[2019-03-27] MEDS: *HR* Heparin 5,000 UNIT/ML VIAL SQ SCH (06:13)
[2019-03-27] MEDS: Azithromycin 500 MG in 0.9 % Sodium Chloride 250 ML IVPB SCH (06:13)
[2019-03-27] MEDS: levETIRAcetam 250 MG TABLET PO SCH (08:23)
[2019-03-27] MEDS: Aspirin Enteric Coated 81 MG Tablet PO SCH (08:24)
[2019-03-27] MEDS: Albuterol 2.5 MG/3 ML NEBULIZER IH SCH (08:28)
[2019-03-27] MEDS: Budesonide/Formoterol 160/4.5 1 PUFF INH IH SCH (08:29)
[2019-03-27] MEDS ORDERED: amLODIPine 5 MG TABLET PO SCH (09:00)
[2019-03-27] MEDS ORDERED: Famotidine 20 MG TABLET PO SCH (09:00)
[2019-03-27] MEDS ORDERED: NON-FORMULARY MEDICATION 1 EACH EACH (Amlodipine Besylate 2.5 MG) PO SCH (09:00)
[2019-03-27 10:50] VITALS: BP 113/68
[2019-03-28] MEDS ORDERED: predniSONE 20 MG TABLET PO SCH (09:00)
== END 2019-03-27 15:45 | disposition home or self-care (01) ==
LOC: EMEROOARM 01:56 → 3ANU 01:56 → SUATTDRO 06:03 → 3ANU 06:27
PROVIDERS: ADMIT Family Medicine; ATTEND Family Medicine